=== PATIENT | female | born 1970 | race Caucasian/White ===

== ENCOUNTER 2023-12-24 20:02 | Emergency (ER) | payer SELFPAY ==
[2023-12-24 20:10] VITALS: BP 117/78; PULSE 94; RESP 18; TEMP 36.8; O2SAT 94; BMI 20.9
--- NOTE | 2023-12-24 20:15 | ECG_ITS ---
[facility] Test Date: 2023-12-24 Pat Name: Mandy Muller Department: Room: Gender: Female Pharmaceutical Engineer: : 1970 Requested By: Katy Piper Order Number: [id number] Axel MD: Dotty Hanley M.D. Measurements Intervals [place] Rate: 94 P: 76 ND: 133 QRS: 87 QRSD: 86 T: 72 QT: 345 QTc: 432 Interpretive Statements SINUS RHYTHM Normal EKG No previous ECG available for comparison Electronically Signed On 12-25-2023 16:47:22 CDT by Dotty Hanley M.D. [id number]
--- NOTE | 2023-12-24 20:26 | ED.C_ITS ---
Documented by User: Katy Aragon MD 12/24/23 21:49 HPI - Psych 2 General: Chief Complaint: Psychiatric Symptoms Stated Complaint: PANIC ATTACK Time Seen by Provider: 12/24/23 20:03 History of Present Illness: 53-year-old female who presents to the e mergency room with police officers. Apparently she had pulled over on the side of the road and police had stopped there and she was acting erratic. Apparently she hit her head on some things. They were concerned she might try to walk into traffic. They report she had busted out some windows. When asked about this she will say anything. She just tells me she was extremely stressed out and so she pulled out on the side of the road. Police report methamphetamine use Review of Systems 2 Narrative: Constitutional symptoms: Negative except as documented in HPI. Skin symptoms: Negative except as documented in HPI. Eye symptoms: Negative except as documented in HPI. ENMT symptoms: Negative except as documented in HPI. Respiratory symptoms: Negative except as documented in HPI. Cardiovascular symptoms: Negative except as documented in HPI. Gastrointestinal symptoms: Negative except as documented in HPI. Genitourinary symptoms: Negative except as documented in HPI. Musculoskeletal symptoms: Negative except as documented in HPI. Neurologic symptoms: Negative except as documented in HPI. Psychiatric symptoms: Negative except as documented in HPI. Endocrine symptoms: Negative except as documented in HPI. Physical Exam 2 Narrative: EXAM NARRATIVE: General: Alert, no acute distress. Skin: Warm, dry. Head: Normocephalic, atraumatic. Neck: Supple, trachea midline. Eye: Extraocular movements are intact. Ears, nose, mouth and throat: Edentulous Cardiovascular: Regular, Normal peripheral perfusion. Respiratory: Lungs are clear to auscultation, respirations are non-labored, breath sounds are equal, Symmetrical chest wall expansion. Gastrointestinal: Soft, Nontender, Non distended Musculoskeletal: Normal ROM, no deformity. Neurological: Alert and oriented, No focal neurological deficit observed. Psychiatric: Cooperative, patient has behaviors that would be consistent with methamphetamine intoxication. Course 2 Vital Signs: Vital signs: Vital Signs Temperature 98.1 F 12/25/23 21:11 Pulse Rate 81 12/25/23 21:11 Respiratory Rate 14 12/25/23 21:11 Blood Pressure 147/78 12/25/23 21:11 Pulse Oximetry 98 12/25/23 21:11 Oxygen Delivery Me thod Room Air 12/25/23 06:30 [facility] - Psych Medical Decision Making Medical decision making: Differential diagnosis for patient with reported psychosis with plan for psychiatric admission including but not limited to and based on the above HPI, review of systems and physical exam: concerns for infection, alcohol intoxication, cardiac issues or other medical problems prior to psychiatric admission. Orders placed to evaluate differential diagnosis based on the above differential, HPI and physical exam labwork, ekg ordered to evaluate the pathologies and to clear the patient medically prior to psychiatric admission EKG: Time 2014. Rate 94 normal sinus rhythm, No ST-T changes, no ectopy, normal ND & QRS intervals, This was reviewed and interpreted by myself the ER physician at 2019 IM [facility] and [place] were given. Consultation I spoke with Dr. Schulz who will accept the patient to psych unit here if they come up with any beds. 96-hour hold placed secondary to affidavit by the police. Patient care transition to Dr. Owen at shift change. I have consulted psych and they will take the patient but currently there are no beds. Also at this point she has not given any urine or blood samples. Lab Data 12/24/23 22:30 12/24/23 22:05 Laboratory Results WBC 9.47 10^3/uL (3.29-11.43) 12/24/23 22:30 Corrected WBC Cancelled 12/24/23 22:05 RBC 4.46 10^6/uL (3.85-5.65) 12/24/23 22:30 Hgb 14.20 g/dL (11.27-16.99) 12/24/23 22:30 Hct 43.0 % (36-47) 12/24/23 22:30 MCV 96.4 fl (85-98) 12/24/23 22:30 MCH 31.8 pg (27-33) 12/24/23 22:30 MCHC 33.0 g/dL (30-55) 12/24/23 22:30 RDW 13.0 % (12.1-15.1) 12/24/23 22:30 Plt Count 168 10^3/cmm (157-399) 12/24/23 22:30 MPV 11.5 fL (7.4-10.4) H 12/24/23 22:30 Gran % Cancelled 12/24/23 22:05 Neut % (Auto) 70.3 % 12/24/23 22:30 Lymph % (Auto) 21.2 % 12/24/23 22:30 [place] % (Auto) 6.0 % 12/24/23 22:30 Eos % (Auto) 1.6 % 12/24/23 22:30 Baso % (Auto) 0.6 % 12/24/23 22:30 Neut # (Auto) 6.65 10^3/uL (1.8-7.7) 12/24/23 22:30 Lymph # (Auto) 2.0 10^3/uL (0.8-4.8) 12/24/23 22:30 [place] # (Auto) 0.6 10^3/uL (0.2-0.9) 12/24/23 22:30 Eos # (Auto) 0.2 10^3/uL (0.0-0.8) 12/24/23 22:30 Baso # (Auto) 0.1 10^3/uL (0.0-0.1) 12/24/23 22:30 Absolute Gran (auto) Cancelled 12/24/23 22:05 Nucleated RBC % (auto) 0 % 12/24/23 22:30 Nucleated RBCs # 0.0 /100WBC 12/24/23 22:30 Sodium 138 mmol/L (136-145) 12/24/23 22:05 Potassium 3.7 mmol/L (3.5-5.1) 12/24/23 22:05 Chloride 106 mmol/L (98-107) 12/24/23 22:05 Carbon Dioxide 15 mmol/L (22-29) L 12/24/23 22:05 Anion Gap 20.7 (5-19) H 12/24/23 22:05 BUN 22 mg/dL (6-20) H 12/24/23 22:05 Creatinine 0.6 mg/dL (0.5-0.9) 12/24/23 22:05 GFR Calculation 105.4 mL/min (90-130) 12/24/23 22:05 Glucose 99 mg/dL (65-115) 12/24/23 22:05 Calculated Osmolality 289 mOsm/kg (285-295) 12/24/23 22:05 Calcium 9.5 mg/dL (8.5-10.5) 12/24/23 22:05 Total Bilirubin 0.5 mg/dL (0.15-1.2) 12/24/23 22:05 AST 59 U/L (0-32) H 12/24/23 22:05 ALT 42 U/L (0-33) H 12/24/23 22:05 Alkaline Phosphatase 72 U/L (35-105) 12/24/23 22:05 Total Protein 7.2 g/dL (6.6-8.7) 12/24/23 22:05 Albumin 4.2 g/dL (3.5-5.2) 12/24/23 22:05 Globulin 3.0 g/dL (1.3-4.6) 12/24/23 22:05 TSH 2.92 uIU/mL (0.27-4.20) 12/24/23 22:05 Urine Color Dark yellow (Yellow) A 12/25/23 01:17 Urine Appearance Turbid (CLEAR) A 12/25/23 01:17 Urine pH 5 (5-7) 12/25/23 01:17 Ur Specific [place] 1.030 (1.005-1.030) 12/25/23 01:17 Urine Protein 2+ (Negative) H 12/25/23 01:17 Urine Glucose (UA) Norm (Normal) 12/25/23 01:17 Urine Ketones 1+ (Negative) H 12/25/23 01:17 Urine Blood 3+ (Negative) H 12/25/23 01:17 Urine Nitrate Negative (Negative) 12/25/23 01:17 Urine Bilirubin 1+ (Negative) H 12/25/23 01:17 Urine Urobilinogen 1 mg/dL (Negative) H 12/25/23 01:17 Ur Leukocyte Esterase Trace (Negative) H 12/25/23 01:17 Urine RBC 80-100 /hpf (0-2) H 12/25/23 01:17 Urine WBC 15-25 /hpf (0-5) H 12/25/23 01:17 Ur Squamous Epith Cells 5-10 /hpf (0-5) H 12/25/23 01:17 Amorphous Sediment Not Reportable 12/25/23 01:17 Urine Bacteria 2+ /hpf (NONE) H 12/25/23 01:17 Urine Mucus Trace /hpf 12/25/23 01:17 Salicylates < 0.3 mg/dL (3-10) L 12/24/23 22:05 Urine Opiates Screen Negative ng/mL (Negative) 12/25/23 01:17 Acetaminophen < 5.0 ug/mL (10-30) L 12/24/23 22:05 Ur Barbiturates Screen Negative ng/mL (Negative) 12/25/23 01:17 Ur Phencyclidine Scrn Negative ng/mL (Negative) 12/25/23 01:17 Ur Amphetamines Screen Positive ng/mL (Negative) H 12/25/23 01:17 U Benzodiazepines Scrn Positive ng/mL (Negative) H 12/25/23 01:17 Urine Cocaine Screen Negative ng/mL (Negative) 12/25/23 01:17 U Marijuana (THC) Screen Positive ng/mL (Negative) H 12/25/23 01:17 Ethyl Alcohol < 10 mg/dL (0-10) 12/24/23 22:05 SARS-CoV-2 Ag (Rapid) negative (Negative) 12/25/23 02:23 Discharge Plan Discharge Patient Disposition: er Psychiatric Hosp Clinical Impression: Acute psychosis, Drug-induced psychotic disorder Condition: Stable Sign Out Sign Out Data: Patient Sign Out occurred on 12/25/23 at 06:20. Patient's care was discussed, and care was transferred from Katy Aragon MD to Karthikeyan Hand DO. Coding Level of Care Code ED Oracle Soa Architect for Chg Fwd Documented by User: Karthikeyan Hand DO 12/27/23 06:40 HPI - Psych 2 General: Chief Complaint: Psychiatric Symptoms Stated Complaint: PANIC ATTACK Time Seen by Provider: 12/24/23 20:03 Course 2 Vital Signs: Vital signs: Vital Signs Temperature 98.1 F 12/25/23 21:11 Pulse Rate 81 12/25/23 21:11 Respiratory Rate 14 12/25/23 21:11 Blood Pressure 147/78 12/25/23 21:11 Pulse Oximetry 98 12/25/23 21:11 Oxygen Delivery Me thod Room Air 12/25/23 06:30 MDM - Psych Medical Decision Making Medical decision making: Differential diagnosis for patient with reported psychosis with plan for psychiatric admission including but not limited to and based on the above HPI, review of systems and physical exam: concerns for infection, alcohol intoxication, cardiac issues or other medical problems prior to psychiatric admission. Orders placed to evaluate differential diagnosis based on the above differential, HPI and physical exam labwork, ekg ordered to evaluate the pathologies and to clear the patient medically prior to psychiatric admission EKG: Time 2014. Rate 94 normal sinus rhythm, No ST-T changes, no ectopy, normal ND & QRS intervals, This was reviewed and interpreted by myself the ER physician at 2019 IM [facility] and [place] were given. Consultation I spoke with Dr. Schulz who will accept the patient to psych unit here if they come up with any beds. 96-hour hold placed secondary to affidavit by the police. Patient care transition to Dr. Owen at shift change. I have consulted psych and they will take the patient but currently there are no beds. Also at this point she has not given any urine or blood samples. Care assumed at change of shift the patient has been doing well has not been acting out no need any further medications I did go back and review again she is still having grandiose delusions mostly revolving around the religiosity. She still convinced that her is in danger of the rapture she is convinced that only she is aware of it. Earlier she has some homophobic delusions. Anticipating transfer. [facility] has accepted. Lab Data 12/24/23 22:30 12/24/23 22:05 Laboratory Results WBC 9.47 10^3/uL (3.29-11.43) 12/24/23 22:30 Corrected WBC Cancelled 12/24/23 22:05 RBC 4.46 10^6/uL (3.85-5.65) 12/24/23 22:30 Hgb 14.20 g/dL (11.27-16.99) 12/24/23 22:30 Hct 43.0 % (36-47) 12/24/23 22:30 MCV 96.4 fl (85-98) 12/24/23 22:30 MCH 31.8 pg (27-33) 12/24/23 22:30 MCHC 33.0 g/dL (30-55) 12/24/23 22:30 RDW 13.0 % (12.1-15.1) 12/24/23 22:30 Plt Count 168 10^3/cmm (157-399) 12/24/23 22:30 MPV 11.5 fL (7.4-10.4) H 12/24/23 22:30 Gran % Cancelled 12/24/23 22:05 Neut % (Auto) 70.3 % 12/24/23 22:30 Lymph % (Auto) 21.2 % 12/24/23 22:30 [place] % (Auto) 6.0 % 12/24/23 22:30 Eos % (Auto) 1.6 % 12/24/23 22:30 Baso % (Auto) 0.6 % 12/24/23 22:30 Neut # (Auto) 6.65 10^3/uL (1.8-7.7) 12/24/23 22:30 Lymph # (Auto) 2.0 10^3/uL (0.8-4.8) 12/24/23 22:30 [place] # (Auto) 0.6 10^3/uL (0.2-0.9) 12/24/23 22:30 Eos # (Auto) 0.2 10^3/uL (0.0-0.8) 12/24/23 22:30 Baso # (Auto) 0.1 10^3/uL (0.0-0.1) 12/24/23 22:30 Absolute Gran (auto) Cancelled 12/24/23 22:05 Nucleated RBC % (auto) 0 % 12/24/23 22:30 Nucleated RBCs # 0.0 /100WBC 12/24/23 22:30 Sodium 138 mmol/L (136-145) 12/24/23 22:05 Potassium 3.7 mmol/L (3.5-5.1) 12/24/23 22:05 Chloride 106 mmol/L (98-107) 12/24/23 22:05 Carbon Dioxide 15 mmol/L (22-29) L 12/24/23 22:05 Anion Gap 20.7 (5-19) H 12/24/23 22:05 BUN 22 mg/dL (6-20) H 12/24/23 22:05 Creatinine 0.6 mg/dL (0.5-0.9) 12/24/23 22:05 GFR Calculation 105.4 mL/min (90-130) 12/24/23 22:05 Glucose 99 mg/dL (65-115) 12/24/23 22:05 Calculated Osmolality 289 mOsm/kg (285-295) 12/24/23 22:05 Calcium 9.5 mg/dL (8.5-10.5) 12/24/23 22:05 Total Bilirubin 0.5 mg/dL (0.15-1.2) 12/24/23 22:05 AST 59 U/L (0-32) H 12/24/23 22:05 ALT 42 U/L (0-33) H 12/24/23 22:05 Alkaline Phosphatase 72 U/L (35-105) 12/24/23 22:05 Total Protein 7.2 g/dL (6.6-8.7) 12/24/23 22:05 Albumin 4.2 g/dL (3.5-5.2) 12/24/23 22:05 Globulin 3.0 g/dL (1.3-4.6) 12/24/23 22:05 TSH 2.92 uIU/mL (0.27-4.20) 12/24/23 22:05 Urine Color Dark yellow (Yellow) A 12/25/23 01:17 Urine Appearance Turbid (CLEAR) A 12/25/23 01:17 Urine pH 5 (5-7) 12/25/23 01:17 Ur Specific [place] 1.030 (1.005-1.030) 12/25/23 01:17 Urine Protein 2+ (Negative) H 12/25/23 01:17 Urine Glucose (UA) Norm (Normal) 12/25/23 01:17 Urine Ketones 1+ (Negative) H 12/25/23 01:17 Urine Blood 3+ (Negative) H 12/25/23 01:17 Urine Nitrate Negative (Negative) 12/25/23 01:17 Urine Bilirubin 1+ (Negative) H 12/25/23 01:17 Urine Urobilinogen 1 mg/dL (Negative) H 12/25/23 01:17 Ur Leukocyte Esterase Trace (Negative) H 12/25/23 01:17 Urine RBC 80-100 /hpf (0-2) H 12/25/23 01:17 Urine WBC 15-25 /hpf (0-5) H 12/25/23 01:17 Ur Squamous Epith Cells 5-10 /hpf (0-5) H 12/25/23 01:17 Amorphous Sediment Not Reportable 12/25/23 01:17 Urine Bacteria 2+ /hpf (NONE) H 12/25/23 01:17 Urine Mucus Trace /hpf 12/25/23 01:17 Salicylates < 0.3 mg/dL (3-10) L 12/24/23 22:05 Urine Opiates Screen Negative ng/mL (Negative) 12/25/23 01:17 Acetaminophen < 5.0 ug/mL (10-30) L 12/24/23 22:05 Ur Barbiturates Screen Negative ng/mL (Negative) 12/25/23 01:17 Ur Phencyclidine Scrn Negative ng/mL (Negative) 12/25/23 01:17 Ur Amphetamines Screen Positive ng/mL (Negative) H 12/25/23 01:17 U Benzodiazepines Scrn Positive ng/mL (Negative) H 12/25/23 01:17 Urine Cocaine Screen Negative ng/mL (Negative) 12/25/23 01:17 U Marijuana (THC) Screen Positive ng/mL (Negative) H 12/25/23 01:17 Ethyl Alcohol < 10 mg/dL (0-10) 12/24/23 22:05 SARS-CoV-2 Ag (Rapid) negative (Negative) 12/25/23 02:23 Discharge Plan Discharge Patient Disposition: [facility] Clinical Impression: Acute psychosis, Drug-induced psychotic disorder Condition: Stable Sign Out Sign Out Data: Patient Sign Out occurred on 12/25/23 at 06:20. Patient's care was discussed, and care was transferred from Katy Aragon MD to Karthikeyan Hand DO. Coding Level of Care Code ED Oracle Soa Architect for [employer] Fwd Documented by User: Tanmay Brambila Brayden, DO 12/25/23 16:11 HPI - Psych 2 General: Chief Complaint: Psychiatric Symptoms Stated Complaint: PANIC ATTACK Time Seen by Provider: 12/24/23 20:03 Course 2 Vital Signs: Vital signs: Vital Signs Temperature 98.1 F 12/25/23 21:11 Pulse Rate 81 12/25/23 21:11 Respiratory Rate 14 12/25/23 21:11 Blood Pressure 147/78 12/25/23 21:11 Pulse Oximetry 98 12/25/23 21:11 Oxygen Delivery Me thod Room Air 12/25/23 06:30 MDM - Psych Lab Data 12/24/23 22:30 12/24/23 22:05 Laboratory Results WBC 9.47 10^3/uL (3.29-11.43) 12/24/23 22:30 Corrected WBC Cancelled 12/24/23 22:05 RBC 4.46 10^6/uL (3.85-5.65) 12/24/23 22:30 Hgb 14.20 g/dL (11.27-16.99) 12/24/23 22:30 Hct 43.0 % (36-47) 12/24/23 22:30 MCV 96.4 fl (85-98) 12/24/23 22:30 MCH 31.8 pg (27-33) 12/24/23 22:30 MCHC 33.0 g/dL (30-55) 12/24/23 22:30 RDW 13.0 % (12.1-15.1) 12/24/23 22:30 Plt Count 168 10^3/cmm (157-399) 12/24/23 22:30 MPV 11.5 fL (7.4-10.4) H 12/24/23 22:30 Gran % Cancelled 12/24/23 22:05 Neut % (Auto) 70.3 % 12/24/23 22:30 Lymph % (Auto) 21.2 % 12/24/23 22:30 [place] % (Auto) 6.0 % 12/24/23 22:30 Eos % (Auto) 1.6 % 12/24/23 22:30 Baso % (Auto) 0.6 % 12/24/23 22:30 Neut # (Auto) 6.65 10^3/uL (1.8-7.7) 12/24/23 22:30 Lymph # (Auto) 2.0 10^3/uL (0.8-4.8) 12/24/23 22:30 [place] # (Auto) 0.6 10^3/uL (0.2-0.9) 12/24/23 22:30 Eos # (Auto) 0.2 10^3/uL (0.0-0.8) 12/24/23 22:30 Baso # (Auto) 0.1 10^3/uL (0.0-0.1) 12/24/23 22:30 Absolute Gran (auto) Cancelled 12/24/23 22:05 Nucleated RBC % (auto) 0 % 12/24/23 22:30 Nucleated RBCs # 0.0 /100WBC 12/24/23 22:30 Sodium 138 mmol/L (136-145) 12/24/23 22:05 Potassium 3.7 mmol/L (3.5-5.1) 12/24/23 22:05 Chloride 106 mmol/L (98-107) 12/24/23 22:05 Carbon Dioxide 15 mmol/L (22-29) L 12/24/23 22:05 Anion Gap 20.7 (5-19) H 12/24/23 22:05 BUN 22 mg/dL (6-20) H 12/24/23 22:05 Creatinine 0.6 mg/dL (0.5-0.9) 12/24/23 22:05 GFR Calculation 105.4 mL/min (90-130) 12/24/23 22:05 Glucose 99 mg/dL (65-115) 12/24/23 22:05 Calculated Osmolality 289 mOsm/kg (285-295) 12/24/23 22:05 Calcium 9.5 mg/dL (8.5-10.5) 12/24/23 22:05 Total Bilirubin 0.5 mg/dL (0.15-1.2) 12/24/23 22:05 AST 59 U/L (0-32) H 12/24/23 22:05 ALT 42 U/L (0-33) H 12/24/23 22:05 Alkaline Phosphatase 72 U/L (35-105) 12/24/23 22:05 Total Protein 7.2 g/dL (6.6-8.7) 12/24/23 22:05 Albumin 4.2 g/dL (3.5-5.2) 12/24/23 22:05 Globulin 3.0 g/dL (1.3-4.6) 12/24/23 22:05 TSH 2.92 uIU/mL (0.27-4.20) 12/24/23 22:05 Urine Color Dark yellow (Yellow) A 12/25/23 01:17 Urine Appearance Turbid (CLEAR) A 12/25/23 01:17 Urine pH 5 (5-7) 12/25/23 01:17 Ur Specific [place] 1.030 (1.005-1.030) 12/25/23 01:17 Urine Protein 2+ (Negative) H 12/25/23 01:17 Urine Glucose (UA) Norm (Normal) 12/25/23 01:17 Urine Ketones 1+ (Negative) H 12/25/23 01:17 Urine Blood 3+ (Negative) H 12/25/23 01:17 Urine Nitrate Negative (Negative) 12/25/23 01:17 Urine Bilirubin 1+ (Negative) H 12/25/23 01:17 Urine Urobilinogen 1 mg/dL (Negative) H 12/25/23 01:17 Ur Leukocyte Esterase Trace (Negative) H 12/25/23 01:17 Urine RBC 80-100 /hpf (0-2) H 12/25/23 01:17 Urine WBC 15-25 /hpf (0-5) H 12/25/23 01:17 Ur Squamous Epith Cells 5-10 /hpf (0-5) H 12/25/23 01:17 Amorphous Sediment Not Reportable 12/25/23 01:17 Urine Bacteria 2+ /hpf (NONE) H 12/25/23 01:17 Urine Mucus Trace /hpf 12/25/23 01:17 Salicylates < 0.3 mg/dL (3-10) L 12/24/23 22:05 Urine Opiates Screen Negative ng/mL (Negative) 12/25/23 01:17 Acetaminophen < 5.0 ug/mL (10-30) L 12/24/23 22:05 Ur Barbiturates Screen Negative ng/mL (Negative) 12/25/23 01:17 Ur Phencyclidine Scrn Negative ng/mL (Negative) 12/25/23 01:17 Ur Amphetamines Screen Positive ng/mL (Negative) H 12/25/23 01:17 U Benzodiazepines Scrn Positive ng/mL (Negative) H 12/25/23 01:17 Urine Cocaine Screen Negative ng/mL (Negative) 12/25/23 01:17 U Marijuana (THC) Screen Positive ng/mL (Negative) H 12/25/23 01:17 Ethyl Alcohol < 10 mg/dL (0-10) 12/24/23 22:05 SARS-CoV-2 Ag (Rapid) negative (Negative) 12/25/23 02:23 All radiology interpretation(s) finalized by discharge Discharge Plan Discharge Patient Disposition: Xfer Psychiatric Hosp Clinical Impression: Acute psychosis, Drug-induced psychotic disorder Condition: Stable Sign Out Sign Out Data: Patient Sign Out occurred on 12/25/23 at 06:20. Patient's care was discussed, and care was transferred from Katy Aragon MD to Karthikeyan Hand DO. Coding Level of Care Code ED Oracle Soa Architect for Bradley Camejo
--- NOTE | 2023-12-24 20:40 | PC.NURSE ---
96 Hour Involuntary Hold Patient Rights have been read to the patient and a copy of the same has been provided to her. Core Drill Operator Grace Durán was present at bedside at the time of presentation of Rights.
[2023-12-24] MEDS: LORazepam 2 mg/mL INJ 1 mL IM (20:46)
[2023-12-24] MEDS: ziprasidone 20 mg/mL SDV IM (20:46)
[2023-12-24] MEDS: water for injection-sterile 10 ML (20:47)
[2023-12-24 20:52] VITALS: BP 120/79; PULSE 78; RESP 16; O2SAT 94
[2023-12-24 21:08] VITALS: BP 120/79
[2023-12-24 22:39] LABS: Basophils # 0.1 10^3/uL (0.0-0.1); Basophils % 0.6 %; Eosinophils # 0.2 10^3/uL (0.0-0.8); Eosinophils % 1.6 %; Lymphocytes % 21.2 %; Mean Corpuscular Hemoglobin 31.8 pg (27-33); Mean Corpuscular Volume 96.4 fl (85-98); Mean Platelet Volume 11.5 fL (7.4-10.4); Monocytes # 0.6 10^3/uL (0.2-0.9); Neutrophils # 6.65 10^3/uL (1.8-7.7); Neutrophils % 70.3 %; Nucleated Red Blood Cells % 0 %; Platelet Count 168 10^3/cmm (157-399); Red Blood Count 4.46 10^6/uL (3.85-5.65); White Blood Count 9.47 10^3/uL (3.29-11.43)
[2023-12-24 22:45] VITALS: BP 104/53
[2023-12-24 23:06] LABS: Alanine Aminotransferase 42 U/L (0-33); Albumin Level 4.2 g/dL (3.5-5.2); Alkaline Phosphatase 72 U/L (35-105); Anion Gap 20.7 (5-19); Aspartate Amino Transferase 59 U/L (0-32); Blood Urea Nitrogen 22 mg/dL (6-20); Calcium 9.5 mg/dL (8.5-10.5); Carbon Dioxide 15 mmol/L (22-29); Chloride 106 mmol/L (98-107); Creatinine Clr Calc Pharmacy 103.6104; Glomerular Filtration Rate 105.4 mL/min (90-130); Glucose 99 mg/dL (65-115); Osmolality Calculated 289 mOsm/kg (285-295); Potassium 3.7 mmol/L (3.5-5.1); Sodium 138 mmol/L (136-145); Thyroid Stimulating Hormone 2.92 uIU/mL (0.27-4.20); Total Bilirubin 0.5 mg/dL (0.15-1.2); Total Protein 7.2 g/dL (6.6-8.7)
[2023-12-24 23:07] LABS: Acetaminophen < 5.0 ug/mL (10-30); Alcohol Level < 10 mg/dL (0-10); Salicylate < 0.3 mg/dL (3-10)
[2023-12-25 02:17] LABS: Amphetamines Screen Urine Positive (Negative); Barbiturates Screen Urine Negative (Negative); Benzodiazepines Screen Urine Positive (Negative); Cocaine Screen Urine Negative (Negative); Opiate Screen Urine Negative (Negative); PCP Screen Urine Negative (Negative); THC Screen Urine Positive (Negative)
[2023-12-25 02:26] VITALS: O2SAT 95
[2023-12-25 02:28] LABS: Bilirubin Urine 1+ (Negative); Blood Urine 3+ (Negative); Glucose Urine UA Norm (Normal); Ketones Urine 1+ (Negative); Leukocyte Esterase Urine Trace (Negative); Nitrate Urine Negative (Negative); Protein Urine 2+ (Negative); Urine Appearance Turbid (CLEAR); Urine Color Dark Yellow (Yellow); Urobilinogen Urine 1 mg/dL (Negative); pH Urine 5 (5-7)
[2023-12-25 02:29] LABS: Add Urine Culture? Yes; Bacteria Urine 2+ /hpf; Mucus Urine TRACE /hpf; RBC Urine 80-100 /hpf (0-2); WBC Urine 15-25 /hpf (0-5)
[2023-12-25 02:56] LABS: SARS Covid-2 Antigen negative (Negative)
[2023-12-25 04:15] VITALS: BP 101/60; PULSE 68; RESP 14; O2SAT 92
[2023-12-25 05:30] VITALS: BP 101/60; PULSE 78; RESP 14; O2SAT 93
[2023-12-25 06:30] VITALS: BP 129/74; PULSE 72; RESP 18; O2SAT 92
[2023-12-25] MEDS: nicotine 21 mg Patch 1 PATCH TRANSDERMA (15:45)
[2023-12-25 21:11] VITALS: BP 147/78; PULSE 81; RESP 14; TEMP 36.7; O2SAT 98
== END 2023-12-25 21:16 ==
PROVIDERS: Emergency Medicine; Emergency Provider Family Medicine
DX: F15.959 Other stimulant use, unspecified with stimulant-induced psychotic disorder, unspecified (principal); F23 Brief psychotic disorder; Z11.52 Encounter for screening for COVID-19
CPT/HCPCS: 80053; 80306; 80307; 81001; 84443; 85025; 87086; 87426; 93005; 96372; 99285; J2060; J3486